=== PATIENT | female | born 1955 | race Caucasian/White ===

== ENCOUNTER 2019-12-09 11:42 | Emergency (ER) | payer MEDICARE, SELFPAY ==
[2019-12-09] VITALS (32 sets, daily range): BP systolic 122–155; BP diastolic 50–112; PULSE 52–70; RESP 14–26; TEMP 37.1; O2SAT 91–100
--- NOTE | ~2019-12-09 | XR_ITS ---
EXAMINATION: XR chest 2V DATE: 12/09/2019 13:31 INDICATION: Syncope. Dizziness. TECHNIQUE: frontal and lateral views of the chest were obtained. COMPARISON: None FINDINGS: The lungs are clear with no focal airspace opacities, pulmonary edema, pleural effusion or pneumothor ax. The cardiomediastinal silhouette is normal. Plate and screw fixation for lower cervical anterior spinal fusion. Moderate thoracic spondylosis. IMPRESSION: 1. No acute cardiopulmonary disease. Reviewed, dictated and finalized at location A.
--- NOTE | ~2019-12-09 | CT_ITS ---
EXAMINATION: CT brain wo con DATE: 12/09/2019 13:20 INDICATION: Syncope TECHNIQUE: Computed tomography (CT) of the head was performed without intravenous contrast. Sagittal and coronal reconstructions were performed. The mA was adjusted according to patient size. Iterative reconstruction technique was employed. The dose-length product was 605.33 mGy-cm. COMPARISON: None FINDINGS: No acute intracranial hemorrhage, acute infarction or abnormal extra axial fluid collection. Symmetri c prominence of the sulci and subarachnoid spaces overlying the convexities consistent with mild age- appropriate diffuse cerebral volume loss. Ventricles are normal and symmetric. No mass/mass effect. Small mucous retention cyst in a posterior right ethmoid air cell. The orbits and mastoid air cells a re normal. IMPRESSION: 1. Normal aging brain. No acute acute intracranial process. Reviewed, dictated and finalized at location A.
--- NOTE | 2019-12-09 11:42 | ECG_ITS ---
Measurements Intervals [place] Rate: 51 P: 16 [place]: 175 QRS: 109 QRSD: 101 T: 68 QT: 442 QTc: 411 Interpretive Statements SINUS BRADYCARDIA RIGHT AXIS DEVIATION ST-T WAVE ABNORMALITY IN ANTERIOR LEADS- CONSIDER ISCHEMIA ABNORMAL ECG Electronically Signed On 12-09-2019 14:44:08 CDT by Felipe Jewell D.O.
[2019-12-09 12:20] LABS: Blood Urea Nitrogen 17 mg/dL (7-17); Calcium 9.2 mg/dL (8.4-10.2); Carbon Dioxide 29 mmol/L (22-30); Chloride 106 mmol/L (98-107); Estimated CRCL calculation 81 ml/min; Estimated Glomerular Filt Rate > 60; Glucose 113 mg/dL (65-105); Potassium 4.3 mmol/L (3.4-5.0); Sodium 139 mmol/L (137-145)
[2019-12-09 12:25] LABS: Basophils Percent Auto 0.5 % (0.2-1.2); Eosinophils Absolute Auto 0.2 K/mm3 (0-0.3); Eosinophils Percent Auto 3.9 % (0-4.4); Hematocrit 40.9 % (37.0-47.0); Hemoglobin 14.2 g/dL (12.0-15.0); Immature Platelet Fraction Pct 5.6 % (0.9-11.2); Lymphocytes Absolute Auto 1.34 K/mm3 (0.9-3.2); Lymphocytes Percent Auto 32.8 % (18.3-44.2); Mean Corpuscular HGB Conc 34.7 g/dl (32-36); Mean Corpuscular Hemoglobin 31.9 pg (26-34); Mean Corpuscular Volume 91.9 fl (80-100); Mean Platelet Volume 11.2 fl (7.4-10.4); Monocytes Absolute Auto 0.4 K/mm3 (0.1-0.6); Monocytes Percent Auto 10.5 % (2.6-8.5); Neutrophils Absolute Auto 2.1 K/mm3 (1.3-6.7); Neutrophils Percent Auto 52.3 % (45.5-73.1); Platelet Count Result 105 k/mm3 (150-375); Red Blood Count 4.45 M/mm3 (4.2-5.4); Red Cell Distribution Width 12.1 % (11.5-14.5); White Blood Count 4.1 K/mm3 (4.5-10.0)
--- NOTE | 2019-12-09 13:08 | ED.SYNCOPE ---
HPI - Syncope General Chief Complaint: Dizziness Stated Complaint: dizziness Time Seen by Provider: 12/09/19 12:58 History of Present Illness HPI narrative: Patient presents via EMS for syncope at her assisted living facility. She was going down to get her lunch when she felt faint they sat her in a chair she lost consciousness for a short time and regained it without injury. She started having dizziness last night about 930. She describes it as both the room spinning and a feeling of lightheadedness. She has no recent history of upper respiratory tract infection. She has no cardiac history. She does not take any prescription medications. Her dog ate her dentures years ago. Surgeries include tubal ligation right knee surgery as a child, tonsillectomy, cervical fusion. She never smoke or drink. complaint: loss of consciousness -: second(s) Prodromal symptoms: lightheaded and other (Drowsy) Witnessed: Yes - by Bystander Context: other (Walking) Injuries sustained associated with event: none Related Data Home Medications Medication Instructions Recorded Confirmed No Home Medications 12/09/19 12/09/19 Allergies Allergy/AdvReac Type Severity Reaction Status Date / Time codeine Allergy Unknown Verified 12/09/19 11:52 Review of Systems Review of Systems: Narrative: CONSTITUTIONAL: Denies fever, chills, or sweats. EYES: Denies visual changes, redness, or discharge. ENT: Denies rhinorrhea, congestion, sore throat, or otalgia. CARDIOVASCULAR: Denies chest pain, palpitations, or edema. RESPIRATORY: Denies cough or dyspnea. GASTROINTESTINAL: Denies abdominal pain, nausea, vomiting, or diarrhea. GENITOURINARY: Denies dysuria or hematuria. SKIN: Denies rash or itching. MUSCULOSKELETAL: Denies back pain, joint pain, or myalgia. NEUROLOGIC: Denies headache, numbness, or weakness. PSYCHIATRIC: Denies anxiety or depression. [facility] Surgical History Surgical History (Updated 12/09/19 @ 13:15 by Desiree Ta MD) History of fusion of cervical spine History of knee surgery History of tonsillectomy History of tooth extraction History of tubal ligation Social History Social History (Updated 12/09/19 @ 13:15 by Desiree Ta MD) Smoking status: Never smoker Alcohol intake: never Substance use: never Gender identity (if verbalized by the patient): Female Exam Narrative: Exam Narrative: GENERAL: Well-appearing, well-nourished, and in no acute distress. HEAD: Normocephalic, atraumatic. EYES: PERRLA and EOMI. ENT: Nares clear, no rhinorrhea or epistaxis. Mucous membranes moist. No teeth. NECK: Supple. CHEST: Clear to auscultation. No respiratory distress. HEART: Regular rate and rhythm. No murmur heard. Normal peripheral pulses. ABDOMEN: Soft, nontender, nondistended, normal active bowel sounds. EXTREMITIES: Normal range of motion. No edema. SKIN: Warm, dry, no rash. NEURO: No focal deficits. Alert and oriented x3. PSYCH: Normal mood and affect. Course Reevaluation(s) Reevaluation #1: Get 1 dose went in to tell the patient that all of her tests come back fine, and she said she felt better. She wanted something to eat before she left. Date: 12/09/19 Time: 17:45 Vital Signs Vital signs: Vital Signs Temperature 98.7 F 12/09/19 11:44 Pulse Rate 62 12/09/19 11:44 Respiratory Rate 19 12/09/19 11:44 Blood Pressure 122/64 12/09/19 11:44 Pulse Oximetry 97 12/09/19 11:44 Temperature 98.7 F 12/09/19 11:44 Pulse Rate 65 12/09/19 17:10 Respiratory Rate 16 12/09/19 17:10 Blood Pressure 155/51 H 12/09/19 17:10 Pulse Oximetry 98 12/09/19 17:10 MDM - Syncope Medical Records Attestation: I reviewed the patient's medical records. Lab Data Attestation: I reviewed the patient's lab results. Result diagrams: 12/09/19 12:17 12/09/19 11:59 Labs: Lab Results 12/09/19 12/09/19 12/09/19 Range/Units 11:59 11:59 12:17 WBC 4.1 L (4.5-10.0) K
[2019-12-09 13:49] LABS: NT Pro B Type Natriuretic Pept 117 PG/ML (5-100); Troponin I < 0.012 ng/mL (0.000-0.034)
[2019-12-09] MEDS: MECLIZINE HCL 25 MG TABLET PO (14:33)
== END 2019-12-09 17:05 | disposition home or self-care (01) ==
PROVIDERS: Emergency Provider Emergency Medicine
DX: R55 Syncope and collapse (principal); Z98.1 Arthrodesis status; R00.1 Bradycardia, unspecified; R94.31 Abnormal electrocardiogram [ECG] [EKG]
CPT/HCPCS: 36415; 70450; 71046; 80048; 83880; 84484; 85025; 85055; 93005; 99284; A9270